=== PATIENT | male | born 1985 | race Caucasian/White ===

== ENCOUNTER 2022-04-05 14:14 | Emergency (ER) | payer OTHER, SELFPAY ==
--- NOTE | ~2022-04-05 | XR_ITS ---
EXAM: XR mandible min 4V DATE: 04/05/2022 14:39 HISTORY: Anterior chin lac x3, knife grinder to the face . COMPARISON: None available. FINDINGS: Normal mineralization. No fracture or dislocation. No lytic or blastic lesion. Aerated spa meron are clear. Inferior orbits are symmetric. No abnormal intracranial calcification. No erosion or p eriosteal change. Soft tissues within normal limits. IMPRESSION: No acute osseous finding in the mandible. Reviewed, dictated and finalized at location [facility]. [employer]
[2022-04-05 14:24] VITALS: BP 144/88; PULSE 70; RESP 18; TEMP 36.7; O2SAT 100
--- NOTE | 2022-04-05 15:37 | ED.WOUNDLAC ---
HPI - Wound/Laceration General Chief Complaint: Wound/Laceration Stated Complaint: chin lac Time Seen by Provider: 04/05/22 15:15 Source: patient and RN notes reviewed Mode of arrival: ambulatory Limitations: no limitations History of Present Illness HPI narrative: This is a 36 year old male who presents for evaluation of chin laceration that occurred today. He was working with a salt grinder when it accidentally kickback on his chin. He denies LOC. He has minimal pain at site of laceration. He reports last tetanus has been in past 2 years. Related Data Allergies Allergy/AdvReac Type Severity Reaction Status Date / Time No Known Allergies Allergy Unknown Unverified 09/24/07 14:09 Review of Systems Constitutional: Constitutional: Denies chills, Denies fatigue and Denies fever(s) Eyes: Eyes: Denies change in vision PMFSH Past Medical History Medical History Ulcerative colitis Social History Social History (Updated 04/05/22 @ 15:38 by Kaitlin Velásquez MD) Smoking status: Never smoker Exam Const: General: no acute distress and alert Nutritional Appearance: well nourished Orientation/consciousness: patient oriented x3 Limitations: no limitations HENMT: Head: normal to inspection Face and sinus: sinuses nontender Mouth: Yes Normal oral and palatal mucosa present, Yes lip normal and Yes moist mucous membranes Teeth and gingiva: dentition normal Other: chin laceration;right side chin with superficial 3 cm laceration that does not require sutures, middle laceration on chin is 3 cm , left chin laceration 3.5 cm laceration; patient has no issues with bite Eyes: Conjunctivae: conjunctivae normal EOM: EOMs intact bilaterally Neck: Neck: normal visual inspection Chest: Chest palpation & inspection: normal inspection of the chest Resp: Effort & Inspection: normal respiratory effort Neuro: General: patient oriented x3, moves all extremities and CN's II-XI intact bilaterally Speech: normal speech Gait exam (Neuro): Normal gait present Extrem: General: normal to inspection Psych: Mental Status: mental status grossly normal Affect: normal affect Attitude: cooperative Course Vital Signs Vital signs: Vital Signs Temperature 98.1 F 04/05/22 14:24 Pulse Rate 70 04/05/22 14:24 Respiratory Rate 18 04/05/22 14:24 Blood Pressure 144/88 H 04/05/22 14:24 Pulse Oximetry 100 04/05/22 14:24 Oxygen Delivery Room Air 04/05/22 14:24 Temperature 98.1 F 04/05/22 14:24 Pulse Rate 70 04/05/22 14:24 Respiratory Rate 18 04/05/22 14:24 Blood Pressure 144/88 H 04/05/22 14:24 Pulse Oximetry 100 04/05/22 14:24 Oxygen Delivery Room Air 04/05/22 14:24 Procedures Laceration Laceration 1: Date: 04/05/22 Time: 16:50 Site: face (chin) Side (If applicable): left Size (cm): 3.5 Description: linear Depth: simple, single layer Local Anesthetic: lidocaine 2% Amount of anesthesia used (mL): 2 Pre-repair: wound explored and irrigated ====== Skin Level ====== Skin layer closed with: other (fast absorbing gut) Size (cm): 5-0 Number of sutures: 6 Technique: simple, interrupted ====== Subcutaneous Layer ====== ====== Muscle Layer ====== ====== Tendon Layer ====== Laceration 2: Date: 04/05/22 Time: 16:51 Site: face (chin mid) Size (cm): 3 Description: linear Depth: simple, single layer Local Anesthetic: lidocaine 2% Amount of anesthesia used (mL): 2 Pre-repair: wound explored and irrigated ====== Skin Level ====== Skin layer closed with: other (fast absorbing gut) Size (cm): 5-0 Number of sutures: 5 Technique: simple, interrupted ====== Subcutaneous Layer ====== ====== Muscle Layer ====== ====== Tendon Layer ======
== END 2022-04-05 17:05 | disposition home or self-care (01) ==
PROVIDERS: Emergency Provider General Practice
DX: S01.81XA Laceration without foreign body of other part of head, initial encounter (principal); K51.90 Ulcerative colitis, unspecified, without complications; W31.1XXA Contact with metalworking machines, initial encounter
CPT/HCPCS: 12002; 70110; 99283

== ENCOUNTER 2024-04-01 14:45 | Outpatient (RCR) | payer OTHER, SELFPAY ==
--- NOTE | 2024-02-24 12:49 | OPREHPOC ---
Outpatient Therapy Plan of Care This is a Multidisciplinary Plan of Care that may contain components documented by all disciplines (PT, OT, and ST.) PT Problem 1 PT Problem #1 Knowledge Deficit PT Goal 1 Goal / Goal Update 1. Pt to be IND with issued HEP. Target Visit 10 PT Problem 2 PT Problem #2 Pain PT Goal 1 Goal / Goal Update 1. Pt to report back pain no greater than 3/10 in the last week. 2. Pt reports 75% improvement in overall symptoms. Target Visit 10 PT Problem 3 PT Problem #3 Impaired Range of Motion PT Goal 1 Goal / Goal Update 1. Pt to improve hamstring length to -25 deg rocío 2. Pt to report an equal stretch sensations with standing lateral trunk lean Target Visit 10
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
--- NOTE | 2024-03-17 13:02 | PCPTNOTE ---
Patient canceled appointment on 03/18/24 due to having family stuff going on.
--- NOTE | 2024-04-12 10:00 | PCPTNOTE ---
Called patient and had to cancel scheduled appointment this date due to not recieved a signed POC from his provider yet. Pt will not be seen until this form is received. Have sent and called office multiple times.
--- NOTE | 2024-05-23 11:21 | PTOPDC ---
Assessment and note entered by Bella Rosenberg, PT, DPT Evaluation Information Assessment Status Discharge - Pt Not Present Diagnosis neck and back pain ICD-10 Condition Codes (PT) Cervicalgia M54.2,Pain in low back M54.50 Subjective Information Have not received signed POC from provider after 4 fax attempted. Have to discharge at this time. Assessment PT Clinical Summary Pt completed 8 visits of skilled therapy.
== END 2024-05-24 23:59 | disposition home or self-care (01) ==
LOC: ANHGOSHPT 14:45
DX: M54.50 Low back pain, unspecified (principal); M54.2 Cervicalgia
CPT/HCPCS: 97014; 97110; 97140; 97161; 97530; G0283